=== PATIENT | female | born 1940 | race Two or more races ===

== ENCOUNTER 2018-06-16 14:21 | Emergency (ER) | payer MEDICARE, MEDICAID ==
[~2018-06-16] VITALS: Ht 167.6 cm; Wt 81.6 kg
[~2018-06-16 14:21] MED LIST: ALBUTEROL SULF8.5 GM INH; CIPRO500 MG PO; DONNATAL TAB1 TAB PO; GUAIFENESIN-CO118 M1 ORAL; NORCO 5-325 TA1 EACH ORAL; PHENAZOPYRIDIN200 MG ORAL; SIMVASTATIN20 MG ORAL; SIMVASTATIN20 MG PO; SPIRONOLACTONE1 EACH ORAL; SPIRONOLACTONE25 MG PO; ZITHROMAX250 MG ORAL; [UNRECOGNIZED DRUG - OTHER]
[2018-06-16 15:02] LABS: APPEARANCE,URINE SLIGHTLY CLOUDY; BILIRUBIN, URINE NEGATIVE (NEGATIVE); COLOR,URINE PALE YELLOW; GLUCOSE, URINE (UA) NEGATIVE (NEGATIVE); KETONES,URINE NEGATIVE (NEGATIVE); LEUKOCYTE ESTERASE ,URINE 3+ (NEGATIVE); NITRITE,URINE NEGATIVE (NEGATIVE); PH,URINE 5 (4.5-8.0); PROTEIN,URINE 1+ (NEGATIVE); UROBILINOGEN,URINE NORMAL MG/DL (0.0-1.0)
--- NOTE | 2018-06-16 15:25 | Emergency Room Report ---
History of Present Illness General Chief Complaint: Female Urogenital Problems Present Illness HPI 77-year-old female presents to the emergency department complaining of 8 out of 10 in severity dysuria 3 days. Patient reports urgency, frequency and she describes having bladder pressure. Patient denies fevers or chills she denies low back pain. Patient denies hematuria. Patient denies other dominant tenderness. She denies nausea or vomiting. He also reports 8 out of 10 in severity throbbing left ear pain that has been progressive over the last week. Patient states initially she had nasal congestion with which resolved with Mucinex and [id number]-[id number] medications however she states her ear symptoms have continued to progress. Allergies: Coded Allergies: SULFA (SULFONAMIDE ANTIBIOTICS) (Verified Allergy, Intermediate, N/V, 08/18) PENICILLINS (Verified Allergy, Unknown, 08/19/15) Uncoded Allergies: SULFA (Adverse Reaction, Unknown, VOMITING, 08/19/15) Patient History Past Medical History: see triage record Past Surgical History: none Pertinent Family History: none Now: No Immunizations: UTD Reviewed Nursing Documentation: PMH: Agreed; PSxH: Agreed Nursing Documentation-PMH Hx Hypertension: Yes Hx Pacemaker: No Hx Asthma: No Hx COPD: No Hx Diabetes: No Hx Cancer: No Hx Gastrointestinal Problems: Yes - intestinal inflammation, lactose intolerance Hx Dialysis: No Hx Neurological Problems: No Hx Cerebrovascular Accident: No Hx Seizures: No Review of Systems All Other Systems: negative except mentioned in HPI Physical Exam Vital Signs Date Time Temp Pulse Resp B/P (MAP) Pulse Ox O2 Delivery O2 Flow Rate FiO2 06/16/18 14:31 98.1 88 18 135/68 96 Sp02 EP Interpretation: reviewed, normal General Appearance: no apparent distress, alert, GCS 15, non-toxic Head: normocephalic, atraumatic Eyes: bilateral eye normal inspection, bilateral eye PERRL ENT: hearing grossly normal, normal voice Neck: full range of motion Respiratory: lungs clear, normal breath sounds, speaking full sentences Cardiovascular #1: regular rate, rhythm Gastrointestinal: normal bowel sounds, non tender, soft Rectal: deferred Genitourinary: normal inspection, no CVA tenderness Musculoskeletal: back normal, gait/station normal, normal range of motion, non- tender Neurologic: alert, oriented x3, responsive, motor strength/tone normal, sensory intact, speech normal, grossly normal Psychiatric: judgement/insight normal Skin: normal color, no rash, warm/dry, well hydrated Lymphatic: no adenopathy Medical Decision Making PA Attestation Dr. Fonseca is my supervising Physician whom patient management has been discussed with. Diagnostic Impression: Primary Impression: UTI (urinary tract infection) Qualified Codes: N30.01 - Acute cystitis with hematuria ER Course 77-year-old female presents to the emergency department complaining of 8 out of 10 in severity dysuria 3 days. Patient reports urgency, frequency and she describes having bladder pressure. Patient denies fevers or chills she denies low back pain. Patient denies hematuria. Patient denies other dominant tenderness. She denies nausea or vomiting. He also reports 8 out of 10 in severity throbbing left ear pain that has been progressive over the last week. Patient states initially she had nasal congestion with which resolved with Mucinex and gznl-sgj-hekqexs medications however she states her ear symptoms have continued to progress. Ddx considered but are not limited to UTi , Pyelo, STI, Stone, Cystitis Vital signs: are WNL, pt. is afebrile H&PE are most consistent with UTI ORDERS: - UA labs are attached - elevated WBC's, RBC's and presence of bacteria ED INTERVENTIONS: None required at this time. DISCHARGE: At this time pt. is stable for d/c to home. Will provide printed patient care instructions, and any necessary prescriptions. Care plan and follow up instructions have been discussed with the patient prior to discharge. Labs Test 06/16/18 14:35 Urine Color Pale yellow Urine Appearance Slightly cloudy Urine pH 5 (4.5-8.0) Urine Specific [place] 1.005 (1.005-1.035) Urine Protein 1+ (NEGATIVE) Urine Glucose (UA) Negative (NEGATIVE) Urine Ketones Negative (NEGATIVE) Urine Blood 3+ (NEGATIVE) Urine Nitrite Negative (NEGATIVE) Urine Bilirubin Negative (NEGATIVE) Urine Urobilinogen Normal MG/DL (0.0-1.0) Urine Leukocyte Esterase 3+ (NEGATIVE) Urine RBC 2-4 /HPF (0 - 2) Urine WBC 5-10 /HPF (0 - 2) Urine Squamous Epithelial Cells Few /LPF (NONE/OCC) Urine Bacteria Few /HPF (NONE) Last Vital Signs Date Time Temp Pulse Resp B/P (MAP) Pulse Ox O2 Delivery O2 Flow Rate FiO2 2/6/19 14:31 98.1 88 18 135/68 96 Disposition: HOME, SELF-CARE Condition: Stable Scripts Ciprofloxacin Hcl* (CIPROFLOXACIN HCL*) 500 Mg Tablet 500 MG ORAL EVERY 12 HOURS for 7 Days, #14 TAB 0 Refills Prov: Britney Santana 06/16/18 Phenazopyridine Hcl* (PYRIDIUM*) 100 Mg Tablet 100 MG ORAL THREE TIMES A DAY, #9 TAB Prov: Britney Santana 06/16/18 Patient Instructions: Urinary Tract Infection Additional Instructions: Take medications as directed. Pyridium will cause your urine to change color (Red/[facility]), this is a normal side effect of the medication. Follow up with a Primary Care Provider in 3-5 days, even if your symptoms have resolved. --Please review list of primary care clinics, if you do not already have a primary care provider Return sooner to ED if new symptoms occur, or current symptoms become worse. - Please note that this Emergency Department Report was dictated using [employer] and trueing machine operator technology software, occasionally this can lead to erroneous entry secondary to interpretation by the dictation equipment. Britney Santana Jun 16, 2018 15:25
[2018-06-16 15:33] VITALS: BP 135/68
[2018-06-16] MEDS ORDERED: PHENAZOPYRIDIN100 MG ORAL (15:33)
[2018-06-16] MEDS ORDERED: CIPROFLOXACIN500 M2 ORAL (15:33)
--- NOTE | 2018-06-16 15:33 | NUR ---
ED Nurse Note: Pt presented to D c/o of burning while and after urinating. Pt is AAOx4 repirations are even and unlabored.
[2018-06-16 15:41] VITALS: BP 135/68
== END 2018-06-16 15:41 | disposition home or self-care (01) ==
LOC: EMR 15:15
DX: N39.0 Urinary tract infection, site not specified (principal); Z88.0 Allergy status to penicillin; Z88.2 Allergy status to sulfonamides
CPT/HCPCS: 81003; 99283

== ENCOUNTER 2018-06-21 17:13 | Emergency (ER) | payer MEDICARE, MEDICAID ==
[~2018-06-21] VITALS: Ht 165.1 cm; Wt 80.7 kg
[~2018-06-21 17:13] MED LIST changes: +CIPROFLOXACIN500 M2 ORAL; +NITROFURANTOIN100 M2 ORAL; +PHENAZOPYRIDIN100 MG ORAL
--- NOTE | 2018-06-21 19:02 | NUR ---
ED Nurse Note: Pt arrived ED from home. C/o UTI 2 days ago for follow up. Pt is A/O x4. Vital signs stable at this time, waiting for orders.
[2018-06-21 19:40] LABS: APPEARANCE,URINE CLEAR; BILIRUBIN, URINE 1+ (NEGATIVE); GLUCOSE, URINE (UA) NEGATIVE (NEGATIVE); KETONES,URINE NEGATIVE (NEGATIVE); LEUKOCYTE ESTERASE ,URINE 1+ (NEGATIVE); NITRITE,URINE POSITIVE (NEGATIVE); PH,URINE 6.5 (4.5-8.0); PROTEIN,URINE NEGATIVE (NEGATIVE); UROBILINOGEN,URINE 1 MG/DL (0.0-1.0)
[2018-06-21 19:44] LABS: COLOR,URINE YELLOW
--- NOTE | 2018-06-21 20:30 | NUR ---
ED Nurse Note: Pt has seen by , all orders carried out, urine Labs done. Pt is ready for Discharge. D/C instruction and Prescription given to Pt and verbalized understanding. ID band removed. Pt d/c from ED with steady gait.
[2018-06-21] MEDS ORDERED: ONDANSETRON ODT4 MG BC (20:32)
[2018-06-22 03:15] VITALS: BP 124/69
--- NOTE | 2018-06-23 16:41 | Emergency Room Report ---
History of Present Illness General Chief Complaint: Female Urogenital Problems Source: Patient Present Illness HPI 77 yo F presents to ED c/o dysuria, vomiting. patient states that she was seen here on Jun 16 and was prescribed macrobid for UTI. patient states she is taking he medications as prescribed but still has some dysuria. suprapubic pain. sharp, 5/10 nonradiating. notes nausea and vomiting. Denies fevers or chills. Denies flank pain. no other aggravating or relieving factors. Denies any other associated symptoms. Allergies: Coded Allergies: SULFA (SULFONAMIDE ANTIBIOTICS) (Verified Allergy, Intermediate, N/V, 08/18) PENICILLINS (Verified Allergy, Unknown, 08/19/15) Uncoded Allergies: SULFA (Adverse Reaction, Unknown, VOMITING, 08/19/15) Patient History Past Medical History: HTN Past Surgical History: none Pertinent Family History: none Social History: Denies: smoking, alcohol use, drug use Last Menstrual Period: na Now: No Immunizations: UTD Reviewed Nursing Documentation: PMH: Agreed; PSxH: Agreed Nursing Documentation-PMH Hx Hypertension: Yes Hx Pacemaker: No Hx Asthma: No Hx COPD: No Hx Diabetes: No Hx Cancer: No Hx Gastrointestinal Problems: Yes - intestinal inflammation, lactose intolerance Hx Dialysis: No Hx Neurological Problems: No Hx Cerebrovascular Accident: No Hx Seizures: No Review of Systems All Other Systems: negative except mentioned in HPI Physical Exam Vital Signs Date Time Temp Pulse Resp B/P (MAP) Pulse Ox O2 Delivery O2 Flow Rate FiO2 06/21/18 17:54 98.1 89 18 124/69 98 Room Air Sp02 EP Interpretation: reviewed, normal General Appearance: no apparent distress, alert, GCS 15, non-toxic Head: normocephalic, atraumatic Eyes: bilateral eye normal inspection, bilateral eye PERRL ENT: hearing grossly normal, normal pharynx, no angioedema, normal voice Neck: full range of motion, supple/symm/no masses Respiratory: chest non-tender, lungs clear, normal breath sounds, speaking full sentences Cardiovascular #1: regular rate, rhythm, no edema Cardiovascular #2: 2+ carotid (R), 2+ carotid (L), 2+ radial (R), 2+ radial (L) , 2+ dorsalis pedis (R), 2+ dorsalis pedis (L) Gastrointestinal: normal bowel sounds, non tender, soft, non-distended, no guarding, no rebound Rectal: deferred Genitourinary: normal inspection, no CVA tenderness Musculoskeletal: back normal, gait/station normal, normal range of motion, non- tender Neurologic: alert, oriented x3, responsive, motor strength/tone normal, sensory intact, speech normal Psychiatric: judgement/insight normal, memory normal, mood/affect normal, no suicidal/homicidal ideation Reflexes: 3+ bicep (R), 3+ bicep (L), 3+ tricep (R), 3+ tricep (L), 3+ knee (R) , 3+ knee (L) Skin: normal color, no rash, warm/dry, well hydrated Lymphatic: no adenopathy Medical Decision Making Diagnostic Impression: Primary Impression: Dysuria ER Course 77 yo F presents to ED c/o dysuria, vomiting. recently started on macrobid for UTI differential - UTI, cystitis, pyelonephritis patient placed in chair. after initial history and physical, I ordered UA, tylenol, zofran UA shows some improvement compared to UA on 06/16 Urine Cx from 06/16 did not yield any results at this time discussed findings with patient. patient will continue the macrobid as prescribed. patient will see her urologist this week safe for discharge with close outpatient followup Diagnosis - dysuria stable and discharged to home with Rx Zofran. Followup with PMD/urology. return to ED if symptoms recur/worsen. Labs Test 06/21/18 18:55 Urine Color Yellow Urine Appearance Clear Urine pH 6.5 (4.5-8.0) Urine Specific [place] 1.005 (1.005-1.035) Urine Protein Negative (NEGATIVE) Urine Glucose (UA) Negative (NEGATIVE) Urine Ketones Negative (NEGATIVE) Urine Blood Negative (NEGATIVE) Urine Nitrite Positive (NEGATIVE) Urine Bilirubin 1+ (NEGATIVE) Urine Ictotest Negative (NEGATIVE) Urine Urobilinogen 1 MG/DL (0.0-1.0) Urine Leukocyte Esterase 1+ (NEGATIVE) Urine RBC 0-2 /HPF (0 - 2) Urine WBC 2-4 /HPF (0 - 2) Urine Squamous Epithelial Cells Few /LPF (NONE/OCC) Urine Bacteria Few /HPF (NONE) Last Vital Signs Date Time Temp Pulse Resp B/P (MAP) Pulse Ox O2 Delivery O2 Flow Rate FiO2 06/22/18 03:15 98.1 85 18 124/69 98 Room Air Status: improved Disposition: HOME, SELF-CARE Condition: Stable Scripts Ondansetron Odt* (ZOFRAN ODT*) 4 Mg Tab.rapdis 4 MG BC EVERY 8 HOURS, #10 TAB 0 Refills Prov: Tucker Tong MD 06/21/18 Referrals: NON PHYSICIAN (PCP) Patient Instructions: Urinary Tract Infection Additional Instructions: continue your antibiotics as prescribed. followup with your PMD/urologist Tucker Tong MD Jun 23, 2018 16:41
== END 2018-06-21 20:30 | disposition home or self-care (01) ==
LOC: EMR 18:30
DX: R30.0 Dysuria (principal); I10 Essential (primary) hypertension; Z88.0 Allergy status to penicillin; Z88.2 Allergy status to sulfonamides
CPT/HCPCS: 81003; 99283